=== PATIENT | male | born 1995 | race Caucasian/White ===

== ENCOUNTER 2019-04-16 05:54 | Emergency (ER) | payer BC ==
[~2019-04-16] VITALS: Ht 180.3 cm; Wt 95.3 kg
[2019-04-16 06:05] VITALS: BP 141/65
[2019-04-16] MEDS ORDERED: CEPH-264 PO (06:46)
--- NOTE | 2019-04-16 06:46 | PHYS DOC ---
Past History Past Medical History: No Pertinent History Past Surgical History: No Surgical History Alcohol Use: Rarely Drug Use: None Adult General Chief Complaint Chief Complaint: LACERATION/AVULSION [facility] HPI 24-year-old male presents with a curvilinear 3 centimeter laceration of the right fourth digit. The patient was opening his medicine cabinet a couple of hours prior to arrival when the mirror fell off of it and lacerated his finger. The patient realized that the wound would require stitches so he came to the ED. The patient was able to control the bleeding at home with simple pressure. He has full mobility and sensation. He denies any other injuries. His tetanus is up-to-date as he had a vaccine in 2017. Review of Systems Review of Systems Constitutional: Denies fever or chills [] Eyes: Denies change in visual acuity, redness, or eye pain [] HENT: Denies nasal congestion or sore throat [] Respiratory: Denies cough or shortness of breath [] Cardiovascular: No additional information not addressed in HPI [] GI: Denies abdominal pain, nausea, vomiting, bloody stools or diarrhea [] : Denies dysuria or hematuria [] Musculoskeletal: Denies back pain or joint pain [] Integument: Laceration right fourth digit[] Neurologic: Denies headache, focal weakness or sensory changes [] Endocrine: Denies polyuria or polydipsia [] All other systems were reviewed and found to be within normal limits, except as documented in this note. Physical Exam Physical Exam Constitutional: Well developed, well nourished, no acute distress, non-toxic appearance. [] HENT: Normocephalic, atraumatic, bilateral external ears normal, oropharynx moist, no oral exudates, nose normal. [] Eyes: PERRLA, EOMI, conjunctiva normal, no discharge. [] Neck: Normal range of motion, no tenderness, supple, no stridor. [] Cardiovascular:Heart rate regular rhythm, no murmur [] Lungs & Thorax: Bilateral breath sounds clear to auscultation [] Abdomen: Bowel sounds normal, soft, no tenderness, no masses, no pulsatile masses. [] Skin: 3 cm curvilinear laceration on the dorsal side.[] Back: No tenderness, no CVA tenderness. [] Extremities: No tenderness, no cyanosis, no clubbing, ROM intact, no edema. [] Neurologic: Alert and oriented X 3, normal motor function, normal sensory function, no focal deficits noted. [] Psychologic: Affect normal, judgement normal, mood normal. [] Current Patient Data Vital Signs Vital Signs Date Time Temp Pulse Resp B/P (MAP) Pulse Ox O2 Delivery O2 Flow Rate FiO2 04/16/19 06:05 98.8 78 16 96 Room Air EKG EKG [] Radiology/Procedures Radiology/Procedures [] Impressions: Right ring finger 3 views 04/16/2019. Reason for exam: Injury with glass. Possible foreign body. No fracture or dislocation is seen. A faint area of opacity projects over the midportion of the ring finger toward the radial and dorsal side. This measures about 5 mm in length, and a small fragment of glass is possible. No other foreign body is seen. IMPRESSION: Possible foreign body as discussed above. Electronically signed by: Isidro Schilling Jr., MD (04/16/2019 7:28 AM) [facility] DICTATED AND SIGNED BY: ISIDRO SCHILLING Jr, MD DATE: 04/16/19 0728 CC: ISABEL LEE DO; PCP,NO ~ Course & Med Decision Making Course & Med Decision Making Pertinent Labs and Imaging studies reviewed. (See chart for details) The patient had a 3 cm curvilinear laceration that requires suture repair. See note below for suture details. The patient tolerated well. He works in a fairly dirty environment. I will give him 7 days of Keflex prophylaxis. The x-ray does show possibility of body. I checked the area in question and did not locate any foreign body. He is stable for discharge at this time. [] Dragon Disclaimer Dragon Disclaimer This electronic medical record was generated, in whole or in part, using a voice recognition dictation system. Laceration Repair Lac Repair Indication: 3 cm curvilinear linear laceration of the right fourth digit Procedure: Verbal consent was obtained from the patient for suture repair of his laceration. I anesthetized the area with a digital block with 2% lidocaine. A total of 4 mL was used. After good anesthesia was achieved, I was able to thoroughly irrigate the wound to its base with saline under pressure. There were no foreign bodies found. I then repaired the laceration with 6 4-0 Ethilon sutures in an interrupted fashion. There was good skin approximation. Bleeding was controlled.]. Total repaired wound length: 3 cm. Other Items: Complex repair due to curved shape and difficulty aligning the skin and the proper orientation for minimal scarring. The patient tolerated the procedure well Complications: None. Departure Departure: Impression: Primary Impression: Laceration of right ring finger without damage to nail Disposition: HOME, SELF-CARE Condition: IMPROVED Referrals: PCP,NO (PCP) Patient Instructions: Laceration Care, Adult, [id number] Scripts Cephalexin (KEFLEX) 500 Mg Capsule 1 CAP PO BID for finger laceration, #14 CAP Prov: ISABEL LEE DO 04/16/19 Problem Qualifiers Primary Impression: Laceration of right ring finger without damage to nail Encounter type: initial encounter Foreign body presence: without foreign body Qualified Codes: S61.214A - Laceration without foreign body of right ring finger without damage to nail, initial encounter ISABEL LEE DO Apr 16, 2019 06:46
--- NOTE | 2019-04-16 07:30 | RAD ---
Right ring finger 3 views 04/16/2019. Reason for exam: Injury with glass. Possible foreign body. No fracture or dislocation is seen. A faint area of opacity projects over the midportion of the ring finger toward the radial and dorsal side. This measures about 5 mm in length, and a small fragment of glass is possible. No other foreign body is seen. IMPRESSION: Possible foreign body as discussed above. Electronically signed by: Isidro Castelan Jr., MD (04/16/2019 7:28 AM) [facility] [id number]
== END 2019-04-16 07:00 | disposition home or self-care (01) ==
LOC: ER 05:54
DX: S61.214A Laceration without foreign body of right ring finger without damage to nail, initial encounter (principal); W25.XXXA Contact with sharp glass, initial encounter; Y93.89 Activity, other specified; Y92.89 Other specified places as the place of occurrence of the external cause; Y99.8 Other external cause status
CPT/HCPCS: 12002; 73140; 99284